=== PATIENT | male | born 1995 | race Caucasian/White ===

== ENCOUNTER 2017-01-15 04:22 | Emergency (ER) | payer OTHER ==
[~2017-01-15] VITALS: Ht 182.9 cm; Wt 84.0 kg
[2017-01-15 04:30] VITALS: TEMP 36.6; Ht 182.9 cm; Wt 84.0 kg
[2017-01-15] MEDS ORDERED: ACETAMINOPHEN 500 MG TAB PO STA (04:52)
[2017-01-15] MEDS ORDERED: IBUPROFEN 600 MG TAB PO STA (04:52)
[2017-01-15] MEDS ORDERED: AMOX875T PO (04:53)
[2017-01-15] MEDS ORDERED: AMOXICIL/CLAVU 875MG HOME PACK PO ONE (05:00)
[2017-01-15 05:10] VITALS: BP 145/89; PULSE 60; O2SAT 97
--- NOTE | 2017-01-15 06:34 | EMERGENCY ROOM VISIT NOTE ---
ED Visit Note First contact with patient: 04:35 CHIEF COMPLAINT: Earache HISTORY OF PRESENT ILLNESS: This 21-year-old male presents to the emergency department and states they have had an earache for the past few hours. The patient has not had a sore throat or recent URI. There is no cough and no hoarseness. They rate the pain as sharp and 9/10. The pain is in the right ear. They have had nothing for the pain. REVIEW OF SYSTEMS: A 6 system review of systems was completed with positives and pertinent negatives listed in the HPI. ALLERGIES: No known allergies MEDICATIONS: No chronic medications PMH: Otherwise healthy. Immunizations are up to date. SH: Student who lives locally PHYSICAL EXAM: Vital Signs: Reviewed Nurse's notes GENERAL: White male, in no acute distress, well-developed, well-nourished. SKIN: Normal. HEART: Regular rate and rhythm without murmurs gallops or rubs. LUNGS: Clear to auscultation and breath sounds equal, no wheezes, rales, or rhonchi. MOUTH: The pharynx is not inflamed and the tonsils are not enlarged. The airway is patent. EARS: The right tympanic membrane is erythematous, inflamed and bulging. The right external auditory canal is clear with no tragus tenderness. The left tympanic membrane is pearly garcía without erythema or effusion. The left external auditory canal is clear. LYMPH: There is no lymphadenopathy. ED COURSE: Physical exam and history were performed. Nursing notes and EMR were reviewed. The patient appears to have right ear pain with exam consistent with otitis media. The patient will be given a course of Augmentin with his first dose provided here. He was given ibuprofen and Tylenol and may continue this at home. He was otherwise invited back to the ER with any new, worsening, or concerning symptoms. Current/Historical Medications Scheduled Amoxicillin & Pot Clavulanate (Augmentin 875-125 mg), 1 TAB PO BID Allergies Coded Allergies: No Known Allergies (Unverified , 01/15/17) Vital Signs Date Time Temp Pulse Resp B/P Pulse Ox O2 Delivery O2 Flow Rate FiO2 01/15/17 05:10 60 18 145/89 97 01/15/17 04:30 36.6 70 18 148/84 98 Room Air Medications Administered Medications (Trade) Dose Ordered Sig/Nikole Route Start Time Stop Time Status Last Admin Dose Admin Acetaminophen (Tylenol Tab) 1,000 mg NOW STAT PO 01/15/17 04:52 01/15/17 04:53 DC 01/15/17 05:05 1,000 MG Ibuprofen (Motrin Tab) 600 mg NOW STAT PO 01/15/17 04:52 01/15/17 04:53 DC 01/15/17 05:05 600 MG Amoxicillin/ Clavulanate Potassium (Augmentin 875MG Home Pack) 1 homepack UD ONCE PO 01/15/17 05:00 01/15/17 05:01 DC 01/15/17 05:06 1 HOMEPACK Departure Information Impression Primary Impression: Right otitis media Dispostion Home / Self-Care Condition GOOD Prescriptions Amoxicillin & Pot Clavulanate (Augmentin 875-125 mg) 1 Tab Tab 1 TAB PO BID for 9 Days, #18 TAB Prov: Walter Mahan PA-C 01/15/17 Forms HOME CARE DOCUMENTATION FORM, IMPORTANT VISIT INFORMATION Patient Instructions My [facility] Additional Instructions You were seen and evaluated today on an emergency basis only. This is not a substitute for, or an effort to provide, complete comprehensive medical care. It is not possible to recognize and treat all injuries or illnesses in a single emergency department visit. For this reason it is recommended that you followup with [facility] if any ongoing or persistent symptoms. For baseline pain relief you may alternate ibuprofen and acetaminophen every 4 hours for pain control. Take 600 mg ibuprofen (Advil) and then 4 hours later take 1000 mg acetaminophen (Tylenol). Do not take more than 3000 mg acetaminophen in a single day. Amoxicillin Clavulanate (Augmentin) 875mg: Take one pill twice daily for 10 days for your infection. All antibiotics can cause diarrhea. If this occurs and you feel worse or it does not resolve in 1-2 days follow up with your doctor or return to the Emergency Department as this could be signs of serious underlying problems. Any medication can cause an allergic reaction, stop the pills immediately and return to the ER for rash, hives, breathing difficulties, or swelling. You are welcome to return to the emergency department anytime with new, worsening, or concerning symptoms.
== END 2017-01-15 05:10 | disposition home or self-care (01) ==
LOC: C.EDB 04:24 → C.EDA 05:10
DX: H66.91 Otitis media, unspecified, right ear (principal)

== ENCOUNTER 2018-05-11 10:46 | Emergency (ER) | payer OTHER ==
[~2018-05-11] VITALS: Ht 182.9 cm; Wt 83.0 kg
[2018-05-11 10:51] VITALS: TEMP 36.8; Ht 182.9 cm; Wt 83.0 kg
[2018-05-11] MEDS ORDERED: AMOXICILLIN 250 MG CAP PO STA (11:23)
[2018-05-11] MEDS ORDERED: AMOX500C3 PO (11:27)
--- NOTE | 2018-05-11 11:29 | EMERGENCY ROOM VISIT NOTE ---
ED Visit Note First contact with patient: 11:10 CHIEF COMPLAINT: Sore throat HISTORY OF PRESENT ILLNESS: This 23-year-old male patient presents to the emergency department ambulatory, complaining of sore throat which began 3-4 days ago. The patient has taken ibuprofen with mild relief in his symptoms. They deny any other symptoms including congestion, rhinorrhea, cough, fever, nausea, or vomiting. The patient does report swollen anterior cervical lymph nodes and chills. He does report subjective fever. There is pain with swallowing and the patient is having difficulty eating. He does report clearing his throat this morning and noticing blood tinged sputum. The patient does not recall any known exposure to strep throat. Denies a rash. The patient states all of his friends and roommates locally are ill with strep throat. He states they have been diagnosed positive with positive rapid strep test. REVIEW OF SYSTEMS: A 10 system review of systems was performed with positives and pertinent negatives listed in the history of present illness. All other systems were reviewed and are negative. ALLERGIES: None MEDICATIONS: None PMH: None SOCIAL HISTORY: The patient is a [employer] student. He lives locally with his remains. He denies drug, tobacco use. He does report occasional alcohol use. PHYSICAL EXAM: VITALS: Vitals are noted on the nurse's note and reviewed by myself. Vital signs stable. GENERAL: This is a 23-year-old white male, in no acute distress, nondiaphoretic , well-developed well-nourished. SKIN: The skin was without rashes, erythema, edema, or bruising. There is no tenting of the skin. Capillary reflex less than 2 seconds. HEAD: Normocephalic atraumatic. EARS: External auditory canals clear, tympanic membranes pearly garcía without erythema or effusion bilaterally. EYES: Pupils equal round and reactive to light and accommodation. Conjunctivae without injection, sclerae without icterus. Extraocular movements intact. NOSE: Patent, turbinates without inflammation or discharge. No sinus tenderness. MOUTH: Mucous membranes moist. Tonsils are not enlarged. Pharynx with erythema and exudate. Uvula midline. Airway patent. Tongue does not deviate. NECK: Supple without nuchal rigidity. Anterior cervical lymphadenopathy. No thyromegaly. Cervical spine is nontender. No JVD. HEART: Regular rate and rhythm without murmurs gallops or rubs. LUNGS: Clear to auscultation bilaterally without wheezes, rales or rhonchi. No dullness to percussion. No retractions or accessory muscle use. MUSCULOSKELETAL: No muscle atrophy, erythema, or edema noted. Full range of motion without joint tenderness in all extremities. No tenderness to palpation. Normal gait. Strength 5/5 throughout. NEURO: Patient was alert and oriented to person place and time. Normal sensation to light and sharp touch. No focal neurological deficits. EMERGENCY DEPARTMENT COURSE: The patient was seen and evaluated as above. Centor criteria +3/5. Based on the patient's history, exposure, and examination at this time, he will be treated for strep pharyngitis without rapid strep testing. He was given his first dose of amoxicillin here in the emergency department today. Discharge instructions reviewed, and the patient was discharged home in good condition. I attest that I have personally reviewed the patient's current medication list. Patient was found to have normal blood pressure on screening and does not require follow-up. DIFFERENTIAL DIAGNOSIS: URI, Viral pharyngitis, Strep Pharyngitis, Hand-Foot- Mouth Disease, Peritonsillar abscess, tonsilitis, malignancy, and others DIAGNOSIS: Acute pharyngitis The chart was completed utilizing [employer] voice recognition software. Grammatical errors, random word insertions, pronoun errors, and incomplete sentences are an occasional consequence of this system due to software limitations, ambient noise, and hardware issues. Any formal questions or concerns about the content, text, or information contained within the body of this dictation should be directly addressed to the provider for clarification. Current/Historical Medications Scheduled Amoxicillin (Amoxil), 1,000 MG PO QD Allergies Coded Allergies: No Known Allergies (Unverified , 05/11/18) Vital Signs Date Time Temp Pulse Resp B/P (MAP) Pulse Ox O2 Delivery O2 Flow Rate FiO2 05/11/18 11:39 67 18 115/78 97 05/11/18 10:51 36.8 73 18 122/65 98 Room Air Medications Administered Medications (Trade) Dose Ordered Sig/Nikole Route Start Time Stop Time Status Last Admin Dose Admin Amoxicillin (Amoxil Cap) 1,000 mg NOW STAT PO 05/11/18 11:23 05/11/18 11:25 DC 05/11/18 11:35 1,000 MG Departure Information Impression Primary Impression: Acute pharyngitis Dispostion Home / Self-Care Condition GOOD Prescriptions Amoxicillin (AMOXIL) 500 Mg Cap 1000 MG PO QD for 10 Days, #20 CAP Prov: Estelle Mckeon PA-C 05/11/18 Referrals [facility] (PCP) Patient Instructions ED Strep Pharyngitis Hermelinda Shook [facility] Additional Instructions You were seen and evaluated in the emergency department today for a sore throat. Based on your history, symptoms, and examination, I suspect strep as the etiology. For your sore throat, you may use a 1:1 mixture of liquid Benadryl and liquid Maalox. Gargle and spit this mixture. It will help to soothe the throat and provide some relief. Drink warm tea with honey and lemon, as this will also help to soothe the throat. Gargle with salt water frequently. As discussed, you should take OTC Mucinex and/or Sudafed for your symptoms. Please do not exceed the recommended daily dosages. Ibuprofen(Motrin, Advil) may be used for fever or pain. Use 600mg every six hours as needed. Take with food. Avoid using more than 2400mg in a 24 hour period. Do not use 2400mg per day for more than three consecutive days without physician direction. Prolonged inappropriate use can lead to stomach upset or ulcers. (AND/OR) Acetaminophen(Tylenol) may be used for fever or pain. Use 1000mg every six hours as needed. Avoid using more than 3000mg in a 24 hour period. Please get plenty of rest and drink plenty of fluids. No alcohol while on Amoxicillin. No close contact with others for the next 24 hours, until your second dose of antibiotics. Please return or follow-up with your PCP in 1 week if you are not experiencing any improvement in your symptoms. Return to the emergency department for coughing up blood, difficulty breathing, chest pain, worsening symptoms, or for other concerns. Problem Qualifiers Primary Impression: Acute pharyngitis Pharyngitis/tonsillitis etiology: unspecified etiology Qualified Codes: J02.9 - Acute pharyngitis, unspecified
[2018-05-11 11:39] VITALS: BP 115/78; PULSE 67; O2SAT 97
== END 2018-05-11 11:42 | disposition home or self-care (01) ==
LOC: C.EDB 10:47 → C.EDD 11:42
DX: J02.9 Acute pharyngitis, unspecified (principal)